=== PATIENT | female | born 1955 | race Caucasian/White ===

== ENCOUNTER 2018-03-26 08:14 | Outpatient (CLI) | payer OTHER ==
--- NOTE | 2018-03-26 10:08 | CT ---
CT PULMONARY LUNG SCAN WITHOUT CONTRAST: Indication: History of 40+ years of smoking; half-pack per day with cough in a 63-year-old female. Technique: Low dose lung cancer screening CT evaluation was performed. Comparison: None. FINDINGS: There are scattered mild to moderate emphysema. No suspicious pulmonary nodule is identified. There i s scattered vascular calcification involving the coronary arteries and thoracic aorta. There is post- surgical change of a gastric bypass. There are scattered degenerative and osteoarthritic change. IMPRESSION: 1. Lung RADS category 1 - negative. Recommend annual low dose CT lung cancer screening. 2. Category S - mild to moderate emphysema; mild to moderate atherosclerotic calcification of the tho racic aorta and coronary arteries. POS: [facility]
== END 2018-03-26 08:15 | disposition home or self-care (01) ==
LOC: CT 08:14
PROVIDERS: ATTEND Internal Medicine
DX: F17.210 Nicotine dependence, cigarettes, uncomplicated (principal); J43.9 Emphysema, unspecified; I70.0 Atherosclerosis of aorta; I25.10 Atherosclerotic heart disease of native coronary artery without angina pectoris
CPT/HCPCS: G0297

== ENCOUNTER 2018-04-20 11:23 | Emergency (ER) | payer SELFPAY ==
[2018-04-20] MEDS ORDERED: Ketorolac Tromethamine 30 MG/ML VIAL ONE (14:07)
--- NOTE | 2018-04-20 14:57 | RAD ---
LEFT SHOULDER 2 VIEWS: Date: 04/20/18 HISTORY: Injury, left shoulder pain. FINDINGS/IMPRESSION: No fracture or dislocation is seen. POS: [facility]
--- NOTE | 2018-04-20 14:59 | RAD ---
LEFT WRIST 3 VIEWS: Date: 04/20/18 HISTORY: Fall. Left wrist injury. Recent fracture. COMPARISON: 01/05/18. FINDINGS: Healing, impacted fracture of the distal radial metaphysis is apparent with sclerosis and periosteal reaction. Alignment is unchanged from the post reduction image. Distal ulna is intact. Scaphoid waist within normal limits. Osseous structures are demineralized. Degenerative changes of the first carpom etacarpal joint. IMPRESSION: 1. Healing, impacted distal left radial fracture. Acute fracture component is not suspected. 2. Degenerative changes. 3. Osteoporosis. POS: [facility]
--- NOTE | 2018-04-20 15:02 | RAD ---
LEFT HUMERUS 2 VIEWS: Date: 04/20/18 HISTORY: Injury to arm. FINDINGS: Bones appear somewhat demineralized. I do not see any signs of a definite acute fracture. Humeral nec k region is somewhat difficult to assess on these images. On the internal rotated views, there is concha e slight cortical irregularity along the humeral head, but I cannot definitely confirm this on the ot her views as a definite fracture. IMPRESSION: No definitive signs of fracture. POS: [facility]
== END 2018-04-20 15:15 | disposition home or self-care (01) ==
LOC: ERS 11:23
DX: T14.8XXA Other injury of unspecified body region, initial encounter (principal); M25.512 Pain in left shoulder; E05.90 Thyrotoxicosis, unspecified without thyrotoxic crisis or storm; I25.10 Atherosclerotic heart disease of native coronary artery without angina pectoris; I25.2 Old myocardial infarction; E03.9 Hypothyroidism, unspecified; I10 Essential (primary) hypertension; F17.210 Nicotine dependence, cigarettes, uncomplicated; F32.9 Major depressive disorder, single episode, unspecified; W17.89XA Other fall from one level to another, initial encounter; Y93.01 Activity, walking, marching and hiking
CPT/HCPCS: 96372; J1885